=== PATIENT | male | born 1990 | race Caucasian/White ===

== ENCOUNTER 2022-01-23 16:36 | Emergency (ER) | payer OTHER ==
[2022-01-23 16:50] VITALS: BP 141/92; O2SAT 97
[2022-01-23] MEDS ORDERED: TORAdol 30 mg Injection IM ONE (16:53)
[2022-01-23] MEDS ORDERED: TORAdol 30 mg Injection ONE (16:58)
--- NOTE | 2022-01-23 16:58 | ERPHSYRPT ---
- History of Present Illness Source: patient Exam Limitations: no limitations Patient Subjective Stated Complaint: Pt fell off of a roof while navi and his foot got stuck in a ladder and caused injury to his right foot Triage Nursing Assessment: Pt brought to the ER by his , hyptertensive, rates pain as 5/10, pulses normal, cap refill normal, top of foot swollen, denies hitting head or LOC, denies any other injuries, doesn't appear to be in any distress Physician History: 31 yo wm fell off roof and caught R foot in ladder. Pt denies any other injuries, including head injury/C,T,L-spine pain/chest pain/abdominal pain/upper extremity pain/lower extremity pain. Pain level is moderate. Method of Injury: fell (Fell off roof) Occurred: just prior to arrival Quality: constant Severity of Pain-Max: moderate Severity of Pain-Current: moderate Lower Extremities Pain: foot: right Modifying Factors: Improves With: nothing, movement Allergies/Adverse Reactions: Penicillins Allergy (Verified 01/23/22 16:50) Hx Tetanus, Diphtheria Vaccination/Date Given: Yes (last year) Travel Risk - International Travel Have you traveled outside of the country in past 3 weeks: No - Coronavirus Screening Are you exhibiting any of the following symptoms?: No Close contact with a COVID-19 positive Pt in past 14-21 Days: No - Vaccine Status Have you recieved a Covid-19 vaccination: No - Review of Systems Constitutional: No Symptoms Eyes: No Symptoms Ears, Nose, & Throat: No Symptoms Respiratory: No Symptoms Cardiac: No Symptoms Abdominal/Gastrointestinal: No Symptoms Genitourinary Symptoms: No Symptoms Skin: No Symptoms Neurological: No Symptoms Psychological: No Symptoms Endocrine: No Symptoms Hematologic/Lymphatic: No Symptoms Immunological/Allergic: No Symptoms - Past Medical History Pertinent Past Medical History: No - Past Surgical History Past Surgical History: No - Social History Smoking Status: Current every day smoker Exposure to second hand smoke: Yes Drug Use: none Patient Lives Alone: No Significant Family History: no pertinent family hx - Nursing Vital Signs Nursing Vital Signs: Initial Vital Signs Temperature 98.5 F 01/23/22 16:42 Pulse Rate 96 H 01/23/22 16:42 Respiratory Rate 16 01/23/22 16:42 Blood Pressure 141/92 01/23/22 16:42 O2 Sat by Pulse Oximetry 97 01/23/22 16:42 Pain Scale Pain Intensity 5 Hypertensive - Physical Exam General Appearance: no apparent distress Eyes, Ears, Nose, Throat Exam: normal ENT inspection, TMs normal, pharynx normal, moist mucous membranes Neck Exam: normal inspection, non-tender, supple, full range of motion Cardiovascular/Respiratory Exam: chest non-tender, normal breath sounds, regular rate/rhythm, heart sounds normal Gastrointestinal/Abdominal Exam: non-tender, soft Back Exam: normal inspection, normal range of motion, No CVA tenderness, No vertebral tenderness Hips Exam: bilateral: non-tender, normal inspection, normal range of motion, no evidence of injury Legs Exam: bilateral leg: non-tender, normal inspection, normal range of motion, no evidence of injury Knees Exam: bilateral knee: non-tender, normal inspection, normal range of mo tion, no evidence of injury Ankle Exam: bilateral ankle: non-tender, normal inspection, normal range of motion, no evidence of injury Foot Exam: right foot: swelling (Edema and TTP dorsal R foot/Good pedal pulse, distal sensation, and capillary return) Neuro/Tendon Exam: normal sensation, normal motor functions, normal tendon functions, responds to pain, no evidence tendon injury, No motor deficit, No sensory deficit Mental Status Exam: alert, oriented x 3, cooperative Skin Exam: normal color, warm, dry SpO2 Interpretation: normal SpO2: 97 O2 Delivery: Room Air - Course Nursing assessment & vital signs reviewed: Yes - Radiology Exams Foot X-ray Interpretation: Interpreted by me (R foot neg per ER read) Ordered Tests: Active Orders 24 hr Category Date Time Status Adonay Bandage Application -[facility] STAT Care 01/23/22 17:19 Completed FOOT (MINIMUM 3 VIEWS) Stat Exams 01/23/22 17:13 Completed Medication Summary Discontinued Medications Generic Name Dose Route Start Last Admin Trade Name Joaoq PRN Reason Stop Dose Admin Ketorolac Tromethamine 60 mg 01/23/22 16:53 01/23/22 17:00 Ketorolac Tromethamine 30 Mg/Ml Inj IM 01/23/22 16:54 60 mg STAT ONE Administration Ketorolac Tromethamine Confirm 01/23/22 16:58 Ketorolac Tromethamine 30 Mg/Ml Inj Administered 01/23/22 16:59 Dose 60 mg .ROUTE .STK-MED ONE - Progress Progress: improved Progress Note: 01/23/22 17:20 60mg IM Toradol Adonay wrap R foot per nursing/NVI Counseled pt/family regarding: diagnosis, need for follow-up, rad results - Departure Departure Disposition: Home Clinical Impression: Contusion of foot, right Condition: Stable Critical Care Time: No Referrals: JASSON DHALIWAL DPM [ACTIVE STAFF] - Follow up/PCP as directed Instructions: Contusion (DC), Foot Sprain (DC) Additional Instructions: Adonay wrap for 3-4 days Ice for 12-24 hours Weight bearing as tolerated Toradol as needed for pain Follow up with family MD or Dr. Elizabeth for continued pain Prescriptions: Ketorolac Trometh 10 mg Tab [TORAdol 10 MG TABLET] 10 mg PO TID PRN PRN #10 tablet PRN Reason: Pain
[2022-01-23 17:31] VITALS: PULSE 90
--- NOTE | 2022-01-23 18:06 | XRAY ---
Indication: Pain following fall off ladder. Comparison: None 3 nonweightbearing views right foot demonstrates mild anterior soft tissue swelling and incidental tiny posterior heel spur. No other bony, articular, or soft tissue abnormalities.
== END 2022-01-23 17:29 | disposition home or self-care (01) ==
LOC: ED 16:36
DX: S90.31XA Contusion of right foot, initial encounter (principal); W13.2XXA Fall from, out of or through roof, initial encounter; Y93.H3 Activity, building and construction; M79.671 Pain in right foot; Z72.0 Tobacco use; Z28.310 Unvaccinated for COVID-19
CPT/HCPCS: 73630; 96372; 99283; J1885